=== PATIENT | male | born 1965 | race Caucasian/White ===

== ENCOUNTER → 2016-04-25 | Outpatient (CLI) | payer OTHER | LOC: RAD 10:02 | PROVIDERS: ATTEND Orthopaedic Surgery | DX: S32.89XA Fracture of other parts of pelvis, initial encounter for closed fracture (principal); S32.471A Displaced fracture of medial wall of right acetabulum, initial encounter for closed fracture; X58.XXXA Exposure to other specified factors, initial encounter ==

== ENCOUNTER → 2016-10-03 | Outpatient (CLI) | payer OTHER ==
--- NOTE | 2016-10-04 11:03 | RADIOLOGY REPORT (SQ) ---
EXAM DESCRIPTION: MRI LUMBAR SPINE WITHOUT COMPLETED DATE/TIME: 10/03/2016 7:38 pm REASON FOR STUDY: LOW BACK PAIN M54.5 LOW BACK PAIN COMPARISON: CT abdomen pelvis 11/22/2015 TECHNIQUE: Sagittal and Axial imaging includes T1, T2, STIR and gradient echo sequences. Coronal T2/ HASTE imaging. LIMITATIONS: None. FINDINGS: VISUALIZED UPPER ABDOMEN: Limited evaluation. No acute or suspicious findings suggested. SEGMENTATION: No transitional anatomy. The lowest well-developed disc space is labeled L5-S1. ALIGNMENT: Anatomic. VERTEBRAE: There is a chronic 25% upper endplate compression of T12. No marrow edema. This is chron ic. No retropulsion of bony fragments or significant central or foraminal stenosis. BONE MARROW: Normal. No marrow replacement or reactive changes. DISC SIGNAL: Decreased T2 weighted intervertebral disc signal at L3-4 and L4-5 POSTERIOR ELEMENTS: Generally intact. No pars defect evident. HARDWARE: None in the spine. CORD AND CONUS: Normal in size and signal intensity. Conus at the L1 level. SOFT TISSUES: No aortic aneurysm seen. No bulky retroperitoneal adenopathy or mass. No paraspinal mas s or fluid. T10-11: At the upper edge of the field of view. No central or foraminal stenosis. Mild bilateral f acet hypertrophy. T11-12: No central or foraminal stenosis. Mild bilateral facet hypertrophy. T12-L1: No central or foraminal stenosis. Mild bilateral facet hypertrophy. L1-L2: No significant spinal stenosis or exit foraminal stenosis. Mild bilateral facet hypertrophy. L2-L3: No significant spinal stenosis or exit foraminal stenosis. Moderate bilateral facet hypertrop hy. L3-L4: Mild diffuse posterior disc bulging is present. This finding along with moderate bilateral fa cet and ligament hypertrophy causes borderline central canal narrowing. There is mild bilateral infe rior foraminal narrowing without exiting L3 nerve root impingement L4-L5: Mild diffuse posterior disc bulging is present. This finding along with bulky bilateral facet and ligament hypertrophy causes mild central canal narrowing. Mild bilateral inferior foraminal gary rowing without exiting L4 nerve root impingement. L5-S1: No significant posterior disc bulging. Mild bilateral facet and ligament hypertrophy. No kathryn tral stenosis. Mild bilateral foraminal narrowing without exit L5 nerve root impingement. SACRUM: Visualized upper sacrum intact. OTHER: No other significant findings. IMPRESSION: Mild degenerative changes lower lumbar spine. No high-grade central or foraminal encroa chment TECHNICAL DOCUMENTATION: JOB ID: [id number] [employer] [facility]- All Rights Reserved
== END ==
LOC: RAD 18:46
PROVIDERS: ATTEND Orthopaedic Surgery
DX: M54.5 Low back pain (principal); M47.896 Other spondylosis, lumbar region
CPT/HCPCS: 72148